=== PATIENT | female | born 1960 | race Caucasian/White ===

== ENCOUNTER 2017-12-21 13:05 | Emergency (ER) | payer OTHER ==
--- NOTE | 2017-12-21 13:48 | RADIOLOGY REPORT ---
EXAMINATION: XR PORTABLE CHEST CLINICAL INFORMATION: Chest pain. COMPARISON: None TECHNIQUE: Portable frontal view of the chest was obtained. FINDINGS: Both lungs are symmetrically expanded, appear clear. The cardiomediastinal silhouette is within normal limits given the technique. There is no pleural effusion or pneumothorax present. The visualized upper abdomen is unremarkable. IMPRESSION: No radiographic evidence of acute cardiopulmonary disease.
[2017-12-21 13:55] LABS: ABSOLUTE BASOPHIL COUNT 0.1 /CUMM (0.0-0.2); ABSOLUTE EOSINOPHIL COUNT 0.1 /CUMM (0.0-0.7); ABSOLUTE GRANULOCYTE CT 9.5 /CUMM (1.4-6.5); ABSOLUTE LYMPH COUNT 1.4 /CUMM (1.2-3.4); ABSOLUTE MONOCYTE COUNT 0.5 /CUMM (0.10-0.60); BASOPHIL % 0.5 % (0.0-2.0); HEMATOCRIT 41.5 % (37-47); MEAN CORPUSCULAR HGB CONC 33.9 G/DL (33.0-37.0); MEAN CORPUSCULAR VOLUME 82.7 FL (81.0-99.0); MEAN PLATELET VOLUME 8.9 FL (7.4-10.4); PLATELET COUNT 290 /CUMM (130-400); RBC DISTRIBUTION WIDTH 13.8 % (11.5-14.5); RED BLOOD CELL CT 5.02 /CUMM (4.20-5.40); WHITE BLOOD CELL COUNT 11.5 /CUMM (4.8-10.8)
--- NOTE | 2017-12-21 14:13 | ED CARDIAC/CP/PALPITATIONS ---
History of Present Illness General Chief Complaint: Chest Pain Stated Complaint: BIBA FOR CP Source: patient Exam Limitations: no limitations Vital Signs & Intake/Output Vital Signs & Intake/Output Vital Signs Date Time Temp Pulse Resp B/P B/P Pulse O2 O2 Flow FiO2 Mean Ox Delivery Rate 12/21 1520 98.7 60 18 144/82 99 Room Air 12/21 1314 98.6 73 18 173/90 97 Nasal Cannula Allergies Coded Allergies: NO KNOWN ALLERGIES (NONE 12/21/17) Reconcile Medications Aspirin (Ecotrin*) 81 MG TABLET.DR 2 TAB PO ONCE CP (Reported) Azithromycin (Zithromax) 250 MG TABLET 1 DP PO AD ABX (Reported) 2 the first day followed by 1 for days 2-5 Fluticasone Propionate 50 MCG/ACTUATION SPRAY.SUSP 1-2 SPRAY NASB DAILY SINUS (Reported) Lorazepam (Ativan) 0.5 MG TABLET 1 TAB PO QHS PRN ANXIETY/SLEEP (Reported) Methocarbamol (Robaxin-750) 750 MG TABLET 1 TAB PO Q8H PRN MUSCLE SPASMS ( Reported) Naproxen (EC-Naprosyn) 500 MG TABLET.DR 1 TAB PO BID PAIN/INFLAMMATION ( Reported) Oxycodone HCl/Acetaminophen (Endocet 10-325 MG Tablet) 10 MG-325 MG TABLET 1 TAB PO 4XDP PAIN (Reported) Triage Note: PT BIBA FROM [facility] S/P EPISODE OF CP. REPORTS IT STARTED ABOUT 2.5HRS AGO WITH ACCOMPANYING BURNING SENSATION DOWN LEFT ARM WHILE SHE WAS LAYING IN BED. NO C/O SOB OR NAUSEA. PT STATES PRIOR TO THAT SHE HAD CALLED AMBULANCE FOR LIGHTHEADEDNESS, SHE STATED SHE FELT LIKE SHE WAS GOING TO PASS OUT BUT IT RESOLVED SO SHE STAYED HOME. Triage Nurses Notes Reviewed? yes Onset: Abrupt Duration: day(s): (1), better, gone now Timing: single episode today Quality/Severity: burning Location: left chest Radiation: no radiation Activities at Onset: rest Prior Chest Pain/Card Workup: stress test Nitro Today/Relief: no nitro taken today Aspirin Today: no aspirin today Associated Symptoms: dizziness LMP (ages 10-50): unknown : No Patient currently breastfeeds: No HPI: 57-year-old female history of chronic back pain presents for evaluation of episodes of dizziness lightheadedness presyncope and chest pain. Patient states she woke up this morning in her usual state of health. States that she went to get out of bed and walk to her bathroom when she suddenly felt dizzy lightheaded and felt as though she may pass out. She never actually lost consciousness. This episode lasted for several seconds and then resolved. She was able to go back to her bed and went back to sleep. She woke up for a second time and had a similar episode of dizziness lightheadedness and presyncope. This also lasted for several seconds and then went away. She states that she felt better throughout the early afternoon took a nap and when she woke up from the nap she noticed she had some left-sided chest pain. The pain was located in the left chest and she describes it as burning. Does not radiate. She does note some accompanying tingling in her left shoulder. She denies shortness of breath. At the time of the onset of pain she rated as a 5 out of 10. She states that the pain rapidly improved and currently is only 1 out of 10. She reports she had a similar episode about a year ago and she saw a family sociologist had a stress test. Does not remember family sociologist name. She denies any sweats chills nausea vomiting shortness of breath hemoptysis lower extremity edema or recent surgery or recent trauma. (Alden Junior) Past History Travel History Traveled to [place] past 21 day No Medical History Any Pertinent Medical History? see below for history Tetanus Vaccine: 07/20/13 Surgical History Surgical History: non-contributory Psychosocial History What is your primary language Estonian Family History Hx Contributory? No (Alden Junior) Review of Systems Review of Systems Constitutional: Reports: no symptoms. EENTM: Reports: no symptoms. Respiratory: Reports: no symptoms. Cardiovascular: Reports: see HPI, chest pain. GI: Reports: no symptoms. Genitourinary: Reports: no symptoms. Musculoskeletal: Reports: no symptoms. Skin: Reports: no symptoms. Neurological/Psychological: Reports: see HPI (dizzy lightheaded). Hematologic/Endocrine: Reports: no symptoms. Immunologic/Allergic: Reports: no symptoms. All Other Systems: Reviewed and Negative (Alden Junior) Physical Exam Physical Exam General Appearance: well developed/nourished, no apparent distress, alert, awake Head: atraumatic, normal appearance Eyes: Bilateral: normal appearance, PERRL, EOMI. Ears, Nose, Throat: hearing grossly normal Neck: normal inspection, supple, full range of motion Respiratory: normal breath sounds, chest non-tender, no respiratory distress, lungs clear Cardiovascular: regular rate/rhythm, normal peripheral pulses Peripheral Pulses: 2+ radial (R), 2+ radial (L) Gastrointestinal: normal bowel sounds, soft, non-tender, no organomegaly Back: normal inspection, normal range of motion Extremities: normal inspection, normal range of motion, no edema Neurologic/Psych: no motor/sensory deficits, awake, alert, oriented x 3, normal gait, bridge expert II-XII nml as tested, cerebellar testing intact Skin: intact, normal color, warm/dry Lymphatic: no anterior cervical vicente Core Measures ACS in differential dx? No CVA/TIA Diagnosis No Sepsis Present: No Sepsis Focused Exam Completed? No (Derrick BYRNES,Alden) Progress Differential Diagnosis: AMI, aortic dissection, atrial fibrillation, CHF/pulm edema, intracranial hemorrhage, musculoskeletal pain, myocarditis, pancreatitis, pericarditis, pneumonia, pneumothorax, PSVT, pulmonary embolism, PUD/GERD, PVCs/ PACs, respiratory failure, sepsis, unstable angina, V-fib/V-Tach, WPW syndrome Plan of Care: Orders Procedure Date/time Status TROPONIN LEVEL 12/21 1645 Complete EKG 12/21 1645 Active MISTAKE 12/21 1528 Active URINALYSIS 12/21 1313 Complete TROPONIN LEVEL 12/21 1313 Complete MAGNESIUM 12/21 1313 Complete D-DIMER 12/21 1313 Complete COMPREHENSIVE METABOLIC PANEL 12/21 1313 Complete CBC WITHOUT DIFFERENTIAL 12/21 1313 Complete EKG 12/21 1306 Active Laboratory Tests 12/21/17 1710: Troponin I < 0.01 12/21/17 1507: D-Dimer High Sensitivty 245 H 12/21/17 1358: Urine Color YEL, Urine Clarity CLEAR, Urine pH 6.5, Ur Specific [place] <= 1.005 , Urine Protein NEG, Urine Ketones NEG, Urine Nitrite NEG, Urine Bilirubin NEG, Urine Urobilinogen 0.2, Ur Leukocyte Esterase NEG, Ur Microscopic EXAM NOT REQUIRED, Urine Hemoglobin NEG, Urine Glucose NEG 12/21/17 1335: Anion Gap 8, Estimated GFR > 60, BUN/Creatinine Ratio 16.3, Glucose 101 H, Calcium 9.7, Magnesium 2.0, Total Bilirubin 0.4, AST 28, ALT 53 H, Alkaline Phosphatase 109, Troponin I < 0.01, Total Protein 6.8, Albumin 4.2, Globulin 2.6 , Albumin/Globulin Ratio 1.6, CBC w Diff NO MAN DIFF REQ, RBC 5.02, MCV 82.7, MCH 28.0, MCHC 33.9, RDW 13.8, MPV 8.9, Gran % 82.0 H, Lymphocytes % 11.9 L, Monocytes % 4.6, Eosinophils % 1.0, Basophils % 0.5, Absolute Granulocytes 9.5 H, Absolute Lymphocytes 1.4, Absolute Monocytes 0.5, Absolute Eosinophils 0.1, Absolute Basophils 0.1 Patient is here for evaluation of 2 presyncopal episodes and chest pain. The chest pain did not occur during the presyncopal episodes. On initial evaluation she reported her chest pain was a 1 out of 10 and rapidly improving. Initial EKG is unremarkable. Labs chest x-ray head CT ordered. Patient requested her dose of oxycodone that she takes for her chronic back pain. On repeat evaluation patient is now asymptomatic and feeling well. She denies any symptoms. Blood work is unremarkable including a negative d-dimer (age- adjusted), negative troponin. Chest x-ray head CT unremarkable. Patient will get a repeat EKG and troponin. Again on repeat evaluation patient is asymptomatic and feels well. Repeat EKG troponin are negative and unchanged. Patient will be discharged home with instructions to follow-up with a primary care doctor and family sociologist. Discussed return precautions in detail case discussed Dr. Boyle he agrees. Diagnostic Imaging: Viewed by Me: CT Scan. Discussed w/RAD: CT Scan. Radiology Impression: PATIENT: MEGAN WHITEHEAD PRESENT AGE: 57 PATIENT ACCOUNT NO: [id number] : 62 LOCATION: [facility] ORDERING PHYSICIAN: Alden BYRNES SERVICE DATE: 12/21/17 EXAM TYPE: CAT - CT HEAD WO IV CONTRAST EXAMINATION: CT HEAD WITHOUT CONTRAST CLINICAL INFORMATION: Multiple syncopal episodes. COMPARISON: 08/18/2013 TECHNIQUE: Contiguous axial imaging was performed from the skull base to vertex without intravenous administration of contrast. DLP: 604.94 mGy-cm FINDINGS: No evidence of acute intracranial hemorrhage or extra-axial fluid collection. No acute territorial infarction. No evidence of mass lesion, mass effect or midline shift. The ventricles are symmetric in configuration and normal in size. The basal cisterns are patent. The calvarium is intact. Limited views of the paranasal sinuses are unremarkable. Mastoid air cells are well aerated and middle ear cavities are clear. Limited views of the orbits are unremarkable. IMPRESSION: No acute intracranial pathology. DICTATED BY: Jeannette Escalante MD DATE/ TIME DICTATED:12/21/171437 MIXING MACHINE OPERATOR:ABIGAIL DATE/TIME TRANSCRIBED: 12/21/171437 CONFIDENTIAL, DO NOT COPY WITHOUT APPROPRIATE AUTHORIZATION. < Electronically signed in Other Vendor System> SIGNED BY: Jeannette Escalante MD [id number] CXR Impression: PATIENT: MEGAN WHITEHEAD PRESENT AGE: 57 PATIENT ACCOUNT NO: [id number] : 64 LOCATION: [facility] ORDERING PHYSICIAN: Alden BYRNES SERVICE DATE: 12/21/17 EXAM TYPE: RAD - XRY-PORTABLE CHEST XRAY EXAMINATION: XR PORTABLE CHEST CLINICAL INFORMATION: Chest pain. COMPARISON: None TECHNIQUE: Portable frontal view of the chest was obtained. FINDINGS: Both lungs are symmetrically expanded, appear clear. The cardiomediastinal silhouette is within normal limits given the technique. There is no pleural effusion or pneumothorax present. The visualized upper abdomen is unremarkable. IMPRESSION: No radiographic evidence of acute cardiopulmonary disease. DICTATED BY: Minesh Gray MD DATE/TIME DICTATED:12/21/171342 MIXING MACHINE OPERATOR:ABIGAIL DATE/TIME TRANSCRIBED:12/21/171342 CONFIDENTIAL, DO NOT COPY WITHOUT APPROPRIATE AUTHORIZATION. <Electronically signed in Other Vendor System> SIGNED BY: Minesh Gray MD 12/21/171347 Initial ED EKG: normal sinus rhythm, no ST T wave changes, LEFT ATRIAL ABN Prior EKG: unchanged Repeat EKG: unchanged (Alden Junior) Departure Departure Disposition: HOME OR SELF CARE Condition: Stable Clinical Impression Primary Impression: Chest pain Qualifiers: Chest pain type: unspecified Qualified Code: R07.9 - Chest pain, unspecified Referrals: Adriana BLAIR,Audrey Summers (PCP/Family) Additional Instructions: MAKE A FOLLOW UP WITH YOUR PRIMARY CARE DOCOTOR BRUNILDA. YOU SHOUDL ASL SEE THE PECAN GATHERER YOUR SAW PREVIOUSLY. STAY HYDRATED. RETURN WITH ANY CONCERNS. Departure Forms: Customer Survey General Discharge Information (Alden Junior) PA/BILINGUAL CUSTOMER SERVICE SPECIALIST Co-Sign Statement Statement: ED Attending supervision documentation- [X] I saw and evaluated the patient. I have also reviewed all the pertinent lab results and diagnostic results. I agree with the findings and the plan of care as documented in the PA's/BILINGUAL CUSTOMER SERVICE SPECIALIST's documentation. [] I have reviewed the ED Record and agree with the PA's/BILINGUAL CUSTOMER SERVICE SPECIALIST's documentation. [] Additions or exceptions (if any) to the PAs/BILINGUAL CUSTOMER SERVICE SPECIALIST's note and plan are summarized below: [] (Marcell Boyle DO) Critical Care Note Critical Care Note Critical Care Time: non-applicable (Alden Junior) ED Attending Observation Initial Observation Note: I have seen and personally examined MEGAN WHITEHEAD on 12/26/17 at 0840. I agree with the current emergency department documentation. The disposition (admission or discharge) is uncertain at this time, she needs a period of observation for the following reason(s): The ED Nurse caring for this patient has been personally informed as to what the patient is being observed for. (Alden Junior)
--- NOTE | 2017-12-21 14:51 | CT SCAN REPORT ---
EXAMINATION: CT HEAD WITHOUT CONTRAST CLINICAL INFORMATION: Multiple syncopal episodes. COMPARISON: 08/18/2013 TECHNIQUE: Contiguous axial imaging was performed from the skull base to vertex without intravenous administration of contrast. DLP: 604.94 mGy-cm FINDINGS: No evidence of acute intracranial hemorrhage or extra-axial fluid collection. No acute territorial infarction. No evidence of mass lesion, mass effect or midline shift. The ventricles are symmetric in configuration and normal in size. The basal cisterns are patent. The calvarium is intact. Limited views of the paranasal sinuses are unremarkable. Mastoid air cells are well aerated and middle ear cavities are clear. Limited views of the orbits are unremarkable. IMPRESSION: No acute intracranial pathology.
[2017-12-21 15:20] VITALS: BP 144/82
[2017-12-21] MEDS ORDERED: ENDOCET 10-3251 EACH PO (16:05)
[2017-12-21] MEDS ORDERED: ROBAXIN-750750 M1 PO (16:05)
[2017-12-21] MEDS ORDERED: ZITHROMAX250 M2 PO (16:06)
[2017-12-21] MEDS ORDERED: FLUTICASONE PRO16 GM NASB (16:06)
[2017-12-21] MEDS ORDERED: ATIVAN0.5 M1 PO (16:07)
[2017-12-21] MEDS ORDERED: EC-NAPROSYN500 MG PO (16:07)
[2017-12-21] MEDS ORDERED: ASPIRIN EC81 M1 PO (16:08)
== END 2017-12-21 19:04 ==
LOC: ERH 13:05
PROVIDERS: Physician Assistant Medical
DX: R07.9 Chest pain, unspecified (principal); R42 Dizziness and giddiness
CPT/HCPCS: 71045; 81001; 81003; 93005; 93010